=== PATIENT | female | born 1960 | race Caucasian/White ===

== ENCOUNTER 2018-07-12 11:49 | Outpatient (CLI) | payer BC | END 2018-07-12 11:50 | LOC: CARD 11:49 | PROVIDERS: ATTEND Internal Medicine Cardiovascular Disease | DX: I25.10 Atherosclerotic heart disease of native coronary artery without angina pectoris (principal); I34.0 Nonrheumatic mitral (valve) insufficiency | CPT/HCPCS: 99213 ==